=== PATIENT | female | born 1970 | race Caucasian/White ===

== ENCOUNTER → 2022-01-02 16:33 | Outpatient (REF) | payer MEDICARE, OTHER, SELFPAY ==
--- NOTE | 2022-01-02 16:44 | CA_ITS ---
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 The visually estimated ejection fraction is between 55-60%. - E/E prime ratio is >15, consistent with elevated filling pressures. - The mitral valve appears rheumatic. There is mild mitral valve regurgitation. Mean gradient across the mitral valve 12 mm Hg at 86/Min. Suggestive of moderate to severe mitral stenosis. Findings Left Ventricle Normal left ventricular cavity size. The left ventricular systolic function is normal. The visually estimated ejection fraction is between 55-60%. There is no evidence of regional wall motion abnormalities. E/E prime ratio is >15, consistent with elevated filling pressures. Evidence suggests grade I (mild) diastolic dysfunction. Right Ventricle Normal right ventricular cavity size and systolic function. Atria Both atria are normal in size. Aortic Valve The aortic valve structure and function is likely normal. There is mild calcification of the aortic valve. There is no aortic valve stenosis. There is no aortic valve regurgitation. Mitral Valve The mitral valve appears rheumatic. There is mild anterior and posterior mitral leaflet thickening. The posterior mitral leaflet is immobile. There is mild mitral valve regurgitation. Mean gradient across the mitral valve 12 mm Hg at 86/Min. Suggestive of moderate to severe mitral stenosis. Pulmonic Valve The pulmonic valve is likely normal. Tricuspid Valve There is mild tricuspid valve regurgitation. The pulmonary artery systolic pressure is normal. Great Vessels The asc aorta is normal in size. Venous The inferior vena cava is normal in size and collapses greater than 50% with inspiration. Pericardium/Pleural There is no evidence of pericardial effusion. Prior Study Comparison No prior study available for comparison. Measurements 2D Linear Measurements IVSd: 1.03 0.6-0.9/0.6-1.0 cm LVIDd: 4.18 3.9-5.3/4.2-5.9 cm LVIDd Index: 2.24 2.4-3.2/2.2-3.1 cm/m2 LVIDs: 2.36 2.0-3.6 cm LVPWd: 1.01 0.7-1.1 cm Ao Root: 3.00 2.1-3.5 cm LA Diam: 4.10 2.7-3.8/3.0-4.0 cm LAIDs Index: 2.19 1.5-2.3 cm/m2 LV Mass: 174.31 67-162/88-224 g LV Mass Index: 93.21 43-95/49-115 g/m2 LVOT Diam: 2.30 3.0+(-)1.3 cm 2D Systolic Function EF 4C: 55.10 >55% EF 2C: 57.30 >55% EF BiP: 53.00 >55% Mitral Valve MV VTI: 0.69 MV Pk Vipul: 2.24 MV Mn Vipul: 1.50 MV Pk Grad: 20.00 MV Mn Grad: 11.00 MV Pk E: 1.57 MV PK A: 2.01 MV Decel Time: 110.00 E/A: 0.80 E'Lateral: 5.66 E'Medial: 6.20 E/E' Med: 25.30 E/E' Lat: 27.70 PHT: 32.00 MVA PHT: 6.88 MVA Continuity: 1.71 Decel Marion: 14.25 Aortic Valve AoV Pk Vipul: 1.84 AoV Mn Vipul: 1.27 AoV VTI: 0.35 AoV Pk Grad: 14.00 Aov Mn Grad: 8.00 ELEANOR Cont.VTI: 3.37 LVOT LVOT Pk Vipul: 1.32 LVOT Mn Vipul: 0.96 LVOT VTI: 0.29 LVOT Pk Grad: 7.00 LVOT Mn Grad: 5.00 LVOT Diam: 2.30 LVOT Area: 4.15 Diastolic Function MV Pk E: 1.57 MV Pk A: 2.01 E/A: 0.80 E'Medial: 6.20 E/E' Med: 25.30 E' Laterial: 5.66 E/E' Lat: 27.70 Right Ventricle TAPSE (mm): 24.00 TVS' Vipul: 12.00 Tricuspid Valve TR Pk Vipul: 2.76 TR Pk Grad: 30.00 Great Vessels Aorta Ao Root-2D: 3.00 2.0-3.7 cm Ao Asc: 3.10 2.1-3.4 cm Pulmonary Valve PV Pk Vipul: 1.14 Peak PV Grad: 5.00 Updated in Other Vendor System with Status of Final Jayden Hayes MD electronically signed on 01/04/2022 5:54:06 PM with status of Final
== END ==
LOC: HO.CARD 16:33
PROVIDERS: Visit Provider Family Medicine
DX: I50.9 Heart failure, unspecified (principal)
CPT/HCPCS: 93306